=== PATIENT | female | born 1975 | race Caucasian/White ===

== ENCOUNTER → 2016-09-20 | Outpatient (CLI) | payer OTHER | LOC: KOH-I 09-06 08:30 | DX: Z13.820 Encounter for screening for osteoporosis (principal); Z79.52 Long term (current) use of systemic steroids | CPT/HCPCS: 77080 ==

== ENCOUNTER 2016-10-09 23:34 | Emergency (ER) | payer OTHER | END 2016-10-10 00:59 | disposition home or self-care (01) | LOC: ER1 23:34 | DX: M79.642 Pain in left hand (principal); M25.532 Pain in left wrist; E11.9 Type 2 diabetes mellitus without complications; M79.7 Fibromyalgia; Z88.0 Allergy status to penicillin; Z88.1 Allergy status to other antibiotic agents | CPT/HCPCS: 73110; 73130; 99283 ==

== ENCOUNTER → 2016-11-18 | Outpatient (CLI) | payer OTHER ==
[2016-11-18 08:33] LABS: HEMOGLOBIN 13.3 gm/dl (12.3-15.3); RED BLOOD COUNT 4.22 M/UL (4.00-5.10); WHITE BLOOD COUNT 10.2 K/UL (4.5-11.0)
[2016-11-18 08:52] LABS: BUN/CREATININE RATIO 20 (0-10)
== END ==
LOC: LAB 07:39
PROVIDERS: Internal Medicine Sports Medicine
DX: E11.9 Type 2 diabetes mellitus without complications (principal); M05.79 Rheumatoid arthritis with rheumatoid factor of multiple sites without organ or systems involvement; Z79.899 Other long term (current) drug therapy
CPT/HCPCS: 36415; 80053; 80061; 82248; 83036; 85027

== ENCOUNTER → 2020-08-13 | Outpatient (CLI) | payer OTHER ==
[~2020-08-13] MED LIST: IBUPROFEN400 MG PO; NAPROSYN500 MG PO
== END ==
LOC: MAMO 07-16 09:00
DX: Z12.31 Encounter for screening mammogram for malignant neoplasm of breast (principal)
CPT/HCPCS: 77063; 77067

== ENCOUNTER → 2022-02-08 | Outpatient (CLI) | payer OTHER | LOC: MAMO 11-30 10:30 | DX: Z12.31 Encounter for screening mammogram for malignant neoplasm of breast (principal) | CPT/HCPCS: 77063; 77067 ==